=== PATIENT | male | born 1960 | race Two or more races ===

== ENCOUNTER 2019-05-26 17:56 | Emergency (ER) | payer OTHER ==
[~2019-05-26] VITALS: Ht 162.6 cm; Wt 59.0 kg
[2019-05-26 18:03] VITALS: BP 200/87
[2019-05-26] MEDS ORDERED: DIPH,PERTUSS(ACELL),TET VAC/PF 0.5 ML SYRINGE. VAX IM ONE (18:30)
[2019-05-26] MEDS ORDERED: LIDOCAINE 1% PF 2 ML VIAL. INJ ONE (18:30)
--- NOTE | 2019-05-26 18:52 | RAD ---
Study: FINGER(S) LEFT Indication: Left thumb pain. Comparison: None. Findings: Mild subluxation at the thumb MCP joint. No malalignment at the thumb IP joint. Degenerative changes at both of these joints. Deformity of the ring finger distal phalangeal tuft exhibiting features of chronicity. Scattered degenerative changes outside of the thumb such as involving the interphalangeal joints, third more so than second MCP joint and at the thumb CMC joint and triscaphe joint. The soft tissues at and distal to the thumb IP joint appear somewhat irregular. Impression: 1. No acute fracture seen at the thumb or elsewhere throughout the hand. There is apparent mild subluxation and across the thumb MCP joint which could either be traumatic or degenerative. Additionally, the soft tissues at and distal to the thumb IP joint appear mildly irregular which could be related to soft tissue injury in the appropriate clinical setting. 2. Scattered degenerative changes/chronic findings as above. Electronically signed by: ANDREW MORENO MD (05/26/2019 6:49 PM) [id number]
[2019-05-26] MEDS ORDERED: NEOMY/BACITR/POLYMYXIN OINT PACKET. TP ONE (19:56)
[2019-05-26] MEDS ORDERED: CEPH-264 PO (20:02)
--- NOTE | 2019-05-26 20:03 | PHYS DOC ---
Past Medical History Past Medical History: Arthritis, Diabetes-Type II, Hypertension (NASRA QURESHI APRN) Additional Past Surgical Histo: LT WRIST, RT ARM, HERNIA (NASRA QURESHI APRN) Smoking Status: Current Every Day Smoker Alcohol Use: None Social History Narrative: OCCASIONAL USE (NASRA QURESHI APRN) Attending Signature I have participated in the care of this patient and I have reviewed and agree with all pertinent clinical information above including history, exam, and recommendations. (JAMESON JONES MD) Adult General Chief Complaint Chief Complaint: LACERATION/AVULSION HPI HPI Patient is a 59 year old male who presents to the emergency department with complaints of a laceration to the palmar aspect of his left thumb distal to the DIP,. Patient states he was using a saw to cut some wood today when he accidentally cut his left thumb. He denies any decreased range of motion of the affected digit. Patient is unsure when his last tetanus shot was he denies any numbness, tingling, or decreased sensation of the affected finger. He currently rates his pain 8 out of 10 on the pain scale, he denies taking any medication for relief of his pain prior to arrival. (NASRA QURESHI APRN) Review of Systems Review of Systems Complete ROS is negative unless otherwise noted in HPI. (NASRA QURESHI APRN) Current Medications Current Medications Current Medications Medications (Trade) Dose Ordered Sig/Juan Start Time Stop Time Status Last Admin Dose Admin Diphtheria/ Tetanus/Acell Pertussis (ADACEL TDap SYRINGE) 0.5 ml ONCE ONCE 05/26/19 18:30 05/26/19 18:32 DC 05/26/19 18:53 0.5 ML Lidocaine HCl (Xylocaine-Mpf 1% 2ml Vial) 6 ml 1X ONCE 05/26/19 18:30 05/26/19 18:32 DC 05/26/19 18:52 6 ML (JAMESON JONES MD) Allergies Allergies Allergies Coded Allergies Type Severity Reaction Last Updated Verified No Known Drug Allergies 05/26/19 No (JAMESON JONES MD) Physical Exam Physical Exam See Above Constitutional: Well developed, well nourished, no acute distress, non-toxic appearance. [] HENT: Normocephalic, atraumatic, bilateral external ears normal, nose normal. [] Eyes: PERRLA, EOMI, conjunctiva normal, no discharge. [] Neck: Normal range of motion, no stridor. [] Cardiovascular:Heart rate regular rhythm Lungs & Thorax: Respirations even and unlabored, no retractions, no respiratory distress Skin: Warm, dry, no erythema, no rash; 3 cm laceration noted to palmar aspect of the left thumb distal to the DIP, bleeding controlled by pressure being held by patient, no visible foreign body. [] Extremities: Left thumb: tender to palpation, no crepitus, no obvious deformity, no cyanosis, no clubbing, PMS intact Neurologic: Alert and oriented X 3, no focal deficits noted. [] Psychologic: Affect normal, judgement normal, mood normal. [] (NASRA QURESHI APRN) Current Patient Data Vital Signs Vital Signs Date Time Temp Pulse Resp B/P (MAP) Pulse Ox O2 Delivery O2 Flow Rate FiO2 05/25/ 18:03 98.1 66 18 200/87 (124) 97 Room Air 98.1 (JAMESON JONES MD) EKG EKG [] (NASRA QURESHI APRN) Radiology/Procedures Radiology/Procedures Laceration Repair by me: Anesthesia: 1% lidocaine locally Location: Left thumb Tendon/Joint/Nerves: No injury Foreign body: None detected after copious irrigation and exploration Technique: 11 Simple Interrupted Sutures with 4-0 Ethilon Complexity: No subcutaneous sutures/mucosal repair/edge excision Post Closure Length: 3 cm Patient's bleeding was easily controlled in the department and there is no indication of anemia. No evidence of compartment syndrome, neurologic injury, vascular injury, open joint, tendon laceration, or foreign body. Patient is appropriate for outpatient follow up. PROCEDURE: FINGER(S) LEFT Study: FINGER(S) LEFT Indication: Left thumb pain. Comparison: None. Findings: Mild subluxation at the thumb MCP joint. No malalignment at the thumb IP joint. Degenerative changes at both of these joints. Deformity of the ring finger distal phalangeal tuft exhibiting features of chronicity. Scattered degenerative changes outside of the thumb such as involving the interphalangeal joints, third more so than second MCP joint and at the thumb CMC joint and triscaphe joint. The soft tissues at and distal to the thumb IP joint appear somewhat irregular. Impression: 1. No acute fracture seen at the thumb or elsewhere throughout the hand. There is apparent mild subluxation and across the thumb MCP joint which could either be traumatic or degenerative. Additionally, the soft tissues at and distal to the thumb IP joint appear mildly irregular which could be related to soft tissue injury in the appropriate clinical setting. 2. Scattered degenerative changes/chronic findings as above. [] (NASRA QURESHI APRN) Course & Med Decision Making Course & Med Decision Making Pertinent Labs and Imaging studies reviewed. (See chart for details) [] (NASRA QURESHI APRN) Dragon Disclaimer Dragon Disclaimer This electronic medical record was generated, in whole or in part, using a voice recognition dictation system. (NASRA QURESHI APRN) Departure Departure Impression: Primary Impression: Laceration of left thumb without foreign body without damage to nail Additional Impression: Need for Tdap vaccination Disposition: 01 HOME, SELF-CARE Condition: STABLE Referrals: UNKNOWN PCP NAME (PCP) Patient Instructions: Laceration Care, Adult, [id number], VIS, Tetanus, Diphtheria (Td); Tetanus, Diphtheria, Pertussis (Tdap) - CDC Additional Instructions: Keep the area clean and dry. You may take Tylenol or ibuprofen as needed for pain. Keep the dressing that was placed today on for 24 hours then change the dressing twice a day and apply antibiotic ointment to the area. Wear the aluminum finger splint that was applied until the sutures have been removed. Follow-up with your primary care doctor, or return to the emergency room in 14 days to have the sutures removed, sooner if you develop signs of infection including: redness, warmth, drainage, or a fever. Scripts Cephalexin (KEFLEX) 500 Mg Capsule 500 MG PO QID for 7 Days, #28 CAP 0 Refills Prov: NASRA QURESHI APRN 05/26/19 Splinting Splinting : Location: L thumb Pre-Made Type: aluminum finger splint Pre-Proc Neuro Vasc Exam: normal Post-Proc Neuro Vasc Exam: normal, unchanged from pre-exam (NASRA QURESHI APRN) Problem Qualifiers Primary Impression: Laceration of left thumb without foreign body without damage to nail Encounter type: initial encounter Qualified Codes: S61.012A - Laceration without foreign body of left thumb without damage to nail, initial encounter NASRA QURESHI APRN May 26, 2019 20:03 JAMESON JONES MD May 27, 2019 01:33
== END 2019-05-26 20:10 | disposition home or self-care (01) ==
LOC: ER 17:56
DX: S61.012A Laceration without foreign body of left thumb without damage to nail, initial encounter (principal); E11.9 Type 2 diabetes mellitus without complications; I10 Essential (primary) hypertension; F17.200 Nicotine dependence, unspecified, uncomplicated; W31.2XXA Contact with powered woodworking and forming machines, initial encounter; Y93.89 Activity, other specified; Y92.89 Other specified places as the place of occurrence of the external cause; Y99.8 Other external cause status
CPT/HCPCS: 12002; 73140; 90471; 90715; 99283; J3490